=== PATIENT | male | born 1960 | race Caucasian/White ===

== ENCOUNTER 2019-09-10 05:56 | Day surgery (SDC) | payer OTHER ==
[2019-09-10] MEDS ORDERED: LIDOCAINE 1% 10 ML VIAL INJ ONE (07:00)
[2019-09-10] MEDS ORDERED: SODIUM CHLORIDE 0.9% 50 ML VIAL ONE (07:00)
[2019-09-10] MEDS ORDERED: DEXAMETHASONE INJ 10 MG/ML VIAL ONE (07:00)
[2019-09-10] MEDS ORDERED: MAGNESIUM SULFATE INJ 1 GM/2 ML VIAL ONE (07:00)
[2019-09-10] MEDS ORDERED: PROPOFOL 200 MG/20 ML VIAL IV ONE (07:00)
[2019-09-10] MEDS ORDERED: LACTATED RINGERS 1,000 ML ONE (07:03)
[2019-09-10] MEDS ORDERED: LACTATED RINGERS 1,000 ML IVS ONE ×2 (09:20→10:37)
[2019-09-10] MEDS ORDERED: BUPIVACAINE 0.5% W/EPI 30 ML VIAL INJ ONE ×2 (09:21→09:41)
[2019-09-10] MEDS ORDERED: MIDAZOLAM INJ 2 MG/2 ML VIAL ONE (09:28)
[2019-09-10] MEDS ORDERED: FAMOTIDINE INJ 10 MG/ML VIAL IV ONE (09:28)
[2019-09-10] MEDS ORDERED: fentaNYL CITRATE INJ 50 MCG/ML 2 ML AMP ONE (09:28)
[2019-09-10] MEDS ORDERED: KETAMINE HCL 100 MG/ML VIAL ONE (09:28)
[2019-09-10] MEDS ORDERED: DEXMEDETOMIDINE HCL 200 MCG/2 ML INJ IV ONE (09:28)
[2019-09-10] MEDS ORDERED: HYDROmorphone HCL INJ 2 MG/ML VIAL ONE (10:43)
--- NOTE | 2019-09-10 10:44 | OP ---
DATE OF PROCEDURE: 09/10/19 PREOPERATIVE DIAGNOSIS: 1. Spermatocele. POSTOPERATIVE DIAGNOSIS: 1. Spermatocele. PROCEDURE: 1. Excision of spermatocele. SURGEON: Ezra Day MD. ANESTHESIA: General and local. FINDINGS: The spermatocele was approximately 5 cm. It was dissected down to the supplying duct, which was tied off. COMPLICATIONS: None. ESTIMATED BLOOD LOSS: Minimal. CONDITION: Stable. SPECIMEN: Cyst sac. PLAN: Discharge. INDICATION: As stated. PROCEDURE: General anesthesia was induced. Local anesthesia was instilled. Incision was made over the palpable cyst. We went through the outer layers. The testicle was brought out into the wound and we began our careful dissection with hemostat and a needle-nosed Bovie and dissected it off the epididymis and surrounding tissues finding the base of it, which was then ligated with a 3-0 Vicryl suture and the sac removed entirely. It had been decompressed through our dissection. We then put the testicle back in the scrotum, closed in 3 layers and dressing was applied. He possibly has an inguinal hernia, can definitely identify the sac, but this was not appreciated before. We were only taking out the cyst. If he does, this will have to be done in a different setting. #[id number] MTDD
[2019-09-10] MEDS ORDERED: HYDROmorphone HCL INJ 2 MG/ML VIAL IV ONE ×2 (10:45→11:05)
[2019-09-10 11:40] VITALS: TEMP 96.5; O2SAT 98
[2019-09-10] MEDS ORDERED: HYDROcodone 5MG/APAP 325MG 1 EA TAB ONE (11:42)
[2019-09-10 12:46] VITALS: BP 116/75
== END 2019-09-10 12:40 | disposition home or self-care (01) ==
LOC: AMB 05:56
PROVIDERS: ATTEND Surgery
DX: N43.40 Spermatocele of epididymis, unspecified (principal)
CPT/HCPCS: 00920; 54840; 80053; 85025; A4216; J1100; J1170; J2250; J3010; J3475; J3490; J7120